=== PATIENT | female | born 1995 | race African-American/Black ===

== ENCOUNTER 2016-08-21 21:38 | Emergency (ER) | payer BC ==
[~2016-08-21] VITALS: Ht 160 cm; Wt 72.0 kg
[~2016-08-21 21:38] MED LIST: NAPR500 PO; PERC5TAB12 PO
[2016-08-21 21:42] VITALS: BP 119/58; PULSE 100; RESP 16; TEMP 98.4; O2SAT 100
[2016-08-22 01:45] VITALS: BP 118/76; PULSE 82; RESP 16; O2SAT 98
[2016-08-22] MEDS ORDERED: SODIUM CHLOR 0.9% 1000 ML INJ 1,000 ML IV ONE (02:15)
--- NOTE | 2016-08-22 02:22 | PD ---
HPI Chief Complaint: Related Problem Time Seen by Provider: 01:38 Travel History International Travel<30 days: No Contact w/Intl Traveler<30days: No Traveled to known affect area: No History of Present Illness HPI The patient is a 21 year old female who presents to the [facility] emergency department with a history of lower back pain in the left low back that began at 6:30 PM. She reports that she was sitting down when it started. She reports that it has come and gone. She reports that when she got up to walk after sitting the pain recurred. The patient denies doing any heavy lifting or falling. She reports that she is approximately 13 weeks gestation. She denies having any vaginal bleeding or vaginal discharge. She denies having any abdominal pain. She denies having any dysuria. She reports that she has frequency related to being , however no urgency. The patient denies any recent fever, cough, congestion, neck pain, chest pain, shortness of breath, abdominal pain, vomiting, diarrhea, urinary symptoms, or neurologic symptoms. LMP: May 23, 2016 She has no local OB. She just moved to the area. [facility] Past Medical History Narrative Medical The patient's past medical history is reportedly None. Medical History: Denies Significant Hx Diminished Hearing: No Immunizations Current: Yes Tetanus Vaccination: < 5 Years ?: LMP: 05/23/16 : 2 : 1 Past Surgical History Narrative Surgical The patient's past surgical history is reportedly None. Surgical History: No Previous Surgery Social History Alcohol Use: Yes ([facility]) Tobacco Use: No Substance Use: No Allergies-Medications (Allergen,Severity, Reaction): Coded Allergies: No Known Allergies (Unverified , 08/21/16) Reported Meds & Prescriptions Reported Meds & Active Scripts Active No Active Prescriptions or Reported Medications Review of Systems Except as stated in HPI: all other systems reviewed are Neg General / Constitutional: No: Fever Eyes: No: Visual changes HENT: No: Headaches Cardiovascular: No: Chest Pain or Discomfort Respiratory: No: Shortness of Breath Gastrointestinal: No: Abdominal Pain Genitourinary: Positive: Frequency, No: Urgency, Dysuria Musculoskeletal: Positive: Myalgias, No: Pain Skin: No Rash Neurologic: No: Weakness Psychiatric: No: Depression Endocrine: No: Polydipsia Hematologic/Lymphatic: No: Easy Bruising Physical Exam Narrative General: The patient is well-developed well-nourished female in no acute distress. Head and Neck exam: Head is normocephalic atraumatic. Eyes: Pupils are equal round and reactive to light. Nose: Midline septum with pink mucous membranes Mouth: Dentition unremarkable. Moist mucus membranes. Posterior oropharynx is not erythematous. No tonsillar hypertrophy. Uvula midline. Airway patent. Neck: No palpable lymphadenopathy. No nuchal rigidity. No thyromegaly. Cardiovascular: Regular rate and rhythm without murmurs, gallops, or rubs. Lungs: Clear to auscultation bilaterally. No wheezes, rhonchi, or rales. Abdomen: Soft, without tenderness to palpation in all 4 quadrants of the abdomen. The patient has suprapubic prominence on palpation consistent with early . No guarding, rebound, or rigidity. Normal bowel sounds are audible. Extremities: No clubbing, cyanosis, or edema. 2+ pulses in all 4 extremities. Back: No spinous process tenderness to palpation. No costovertebral angle tenderness to palpation. The patient has tenderness on palpation along the lumbar paraspinal muscles and bilateral SI joints. Neurologic Exam: Grossly nonfocal. Skin Exam: No rash noted. Intact skin that is warm and dry. Gynecologic exam: The patient was placed in the dorsal lithotomy position. Her external genitalia were examined. She had no evidence of rash or lesions. The speculum was placed into her vagina and the cervix was identified. She had a physiologic appearing clear white discharge. No cervical friability. On Bimanual exam: she has no cervical motion tenderness. No adnexal tenderness or prominence noted on palpation. No uterine tenderness or enlargement noted on palpation. Data Data Last Documented VS Vital Signs Date Time Temp Pulse Resp B/P Pulse Ox O2 Delivery O2 Flow Rate FiO2 08/22/16 01:45 82 16 118/76 98 Room Air 08/21/16 21:42 98.4 Orders Beta Hcg (Quant/Titer) (08/22/16 02:03) Complete Blood Count With Diff (08/22/16 02:03) Comprehensive Metabolic Panel (08/22/16 02:03) Gc And Chlamydia Pcr (08/22/16 02:03) Complete Rh (08/22/16 02:03) Wet Prep Profile (08/22/16 02:03) Urinalysis - C+S If Indicated (08/22/16 02:03) Iv Access Insert/Monitor (08/22/16 02:03) Ecg Monitoring (08/22/16 02:03) Ed Poc Ultrasound (08/22/16 02:03) Sodium Chlor 0.9% 1000 Ml Inj (Ns 1000 M (08/22/16 02:15) Acetaminophen (Tylenol) (08/22/16 04:30) Labs Laboratory Tests Test 08/22/16 08/22/16 08/22/16 02:40 03:00 04:15 White Blood Count 6.8 TH/MM3 Red Blood Count 4.78 MIL/MM3 Hemoglobin 13.9 GM/DL Hematocrit 40.4 % Mean Corpuscular Volume 84.4 FL Mean Corpuscular Hemoglobin 29.1 PG Mean Corpuscular Hemoglobin 34.5 % Concent Red Cell Distribution Width 15.1 % Platelet Count 415 TH/MM3 Mean Platelet Volume 8.1 FL Neutrophils (%) (Auto) 57.1 % Lymphocytes (%) (Auto) 33.6 % Monocytes (%) (Auto) 7.9 % Eosinophils (%) (Auto) 0.9 % Basophils (%) (Auto) 0.5 % Neutrophils # (Auto) 3.9 TH/MM3 Lymphocytes # (Auto) 2.3 TH/MM3 Monocytes # (Auto) 0.5 TH/MM3 Eosinophils # (Auto) 0.1 TH/MM3 Basophils # (Auto) 0.0 TH/MM3 CBC Comment DIFF FINAL Differential Comment Sodium Level 136 MEQ/L Potassium Level 4.6 MEQ/L Chloride Level 103 MEQ/L Carbon Dioxide Level 24.9 MEQ/L Anion Gap 8 MEQ/L Blood Urea Nitrogen 5 MG/DL Creatinine 0.59 MG/DL Estimat Glomerular Filtration 156 ML/MIN Rate Random Glucose 77 MG/DL Calcium Level 9.1 MG/DL Total Bilirubin 0.3 MG/DL Aspartate Amino Transf 40 U/L (AST/SGOT) Alanine Aminotransferase 40 U/L (ALT/SGPT) Alkaline Phosphatase 73 U/L Total Protein 8.1 GM/DL Albumin 3.8 GM/DL Human Chorionic Gonadotropin, 81876 MIU/ML Quant Blood Type O POSITIVE Rho(D) Type POSITIVE Urine Color YELLOW Urine Turbidity CLEAR Urine pH 6.0 Urine Specific [place] 1.013 Urine Protein NEG mg/dL Urine Glucose (UA) NEG mg/dL Urine Ketones TRACE mg/dL Urine Occult Blood NEG Urine Nitrite NEG Urine Bilirubin NEG Urine Urobilinogen LESS THAN 2.0 MG/DL Urine Leukocyte Esterase NEG Urine RBC 1 /hpf Urine WBC 1 /hpf Urine Squamous Epithelial 1 /hpf Cells Urine Mucus FEW /lpf Microscopic Urinalysis Comment CULT NOT INDICATED Clue Cells (Wet Prep) NONE SEEN Vaginal Trichomonas (Wet Prep) NONE SEEN Vaginal Yeast (Wet Prep) NONE SEEN MDM Medical Decision Making Medical Screen Exam Complete: Yes Emergency Medical Condition: Yes Medical Record Reviewed: Yes Differential Diagnosis Threatened miscarriage, versus pyelonephritis, versus musculoskeletal strain Narrative Course During the course of the patients emergency department visit, the patients history, examination, and differential diagnosis were reviewed with the patient. The patient had IV access obtained and blood work sent for analysis. The patient's placed on a photographer aerial with oximetry and blood pressure monitoring. The patient was provided normal saline 1 L IV fluid bolus, Tylenol 650 by mouth 1. The patients laboratory studies were reviewed and remarkable for a CBC that is unremarkable. CMP is remarkable for BUN of 5, creatinine 0.59, AST 40, beta hCG 42,554, urinalysis shows trace ketones otherwise unremarkable. Wet prep was negative. Radiology studies were reviewed and remarkable for a bedside ultrasound that was done by me that revealed an intrauterine with active fetus and heart tones between 160-180. The patient's symptoms are most consistent with musculoskeletal strain. The patient was instructed to take Tylenol 650 mg by mouth every 6 hours as needed for discomfort. She was instructed to ice use alternating with heat as needed for discomfort locally. The patient is resting comfortably and feels better, is alert and in no distress. The patients results and examination findings The repeat examination is unremarkable and benign. The history, exam, diagnostic testing, and current condition do not suggest any significant pathology to warrant further testing, continued ED treatment, admission, or surgical evaluation at this point. The vital signs have been stable. The patient does not have uncontrollable pain, intractable vomiting, or other significant symptoms. The patient's condition is stable and appropriate for discharge. The patient will pursue further outpatient evaluation with a primary care physician or other designated or consulting physician as indicated in the discharge instructions. The patient expressed understanding and was agreeable with this plan. Procedures Procedure Narrative Emergency Department Pelvic ultrasound was performed with patient consent. The curvilinear probe was used in the transverse and sagittal views within the suprapubic region revealing single intrauterine . heart rate was 160s to 180s. Diagnosis Primary Impression: Musculoskeletal strain Additional Impression: Back pain affecting Referrals: Carri Blackwell MD 1 week Patient Instructions: Acute Low Back Pain (ED), General Instructions Additional Instructions: The patient was instructed to take Tylenol 650 mg by mouth every 6 hours as needed for discomfort. She was instructed to ice use alternating with heat as needed for discomfort locally. Scripts No Active Prescriptions or Reported Meds Disposition: 01 DISCHARGE HOME Condition: Stable Maira Siddiqui MD Aug 22, 2016 02:22
[2016-08-22 02:58] LABS: AUTOMATED NEUTROPHIL # 3.9 TH/MM3 (1.8-7.7); BASOPHIL % 0.5 % (0.0-2.0); EOSINOPHIL # 0.1 TH/MM3 (0-0.4); EOSINOPHIL % 0.9 % (0.0-4.0); HEMATOCRIT 40.4 % (35.0-46.0); HEMO FLAGS DIFF FINAL; LYMPH % 33.6 % (9.0-44.0); LYMPHOCYTE # 2.3 TH/MM3 (1.0-4.8); MEAN CELL VOLUME 84.4 FL (80.0-100.0); MEAN CORPUSCULAR HEMOGLOBIN 29.1 PG (27.0-34.0); MEAN CORPUSCULAR HGB CONC 34.5 % (32.0-36.0); MONO % 7.9 % (0.0-8.0); NEUT % 57.1 % (16.0-70.0); PLATELET COUNT 415 TH/MM3 (150-450); RED BLOOD COUNT 4.78 MIL/MM3 (4.00-5.30); RED CELL DISTRIBUTION WIDTH 15.1 % (11.6-17.2); WHITE BLOOD COUNT 6.8 TH/MM3 (4.0-11.0)
[2016-08-22 03:43] LABS: ALKALINE PHOSPHATASE 73 U/L (45-117); BETA HCG QUANT 42554 MIU/ML (0-5); TOTAL BILIRUBIN ADULT 0.3 MG/DL (0.2-1.0)
[2016-08-22 03:44] LABS: ALT (GPT) 40 U/L (10-53); ANION GAP 8 MEQ/L (5-15); AST (GOT) 40 U/L (15-37); BICARBONATE 24.9 MEQ/L (21.0-32.0); BLOOD UREA NITROGEN 5 MG/DL (7-18); CHLORIDE 103 MEQ/L (98-107); GLOMERULAR FILTRATION RATE 156 ML/MIN (>89); POTASSIUM 4.6 MEQ/L (3.5-5.1); SODIUM (NA) 136 MEQ/L (136-145)
[2016-08-22 03:53] LABS: BLOOD, URINE NEG (NEG); COMMENT (UR) CULT NOT INDICATED; CULTURE IF INDICATED CULT NOT INDICATED; GLUCOSE,URINE NEG (NEG); KETONE, URINE TRACE mg/dL (NEG); MUCUS URINE FEW /lpf (OCC); NITRITE,URINE NEG (NEG); SQUAMOUS EPITHELIAL CELL URINE 1 /hpf (0-5); URINE COLOR YELLOW (YELLW/STRAW)
[2016-08-22] MEDS ORDERED: ACETAMINOPHEN 325 MG TAB PO ONE (04:30)
[2016-08-22 05:07] VITALS: BP 125/78
[2016-08-22 06:13] LABS: CHLAMYDIA PCR NOT DETECTED (NOT DETECT); NEISSERIA PCR NOT DETECTED (NOT DETECT)
== END 2016-08-22 05:30 | disposition home or self-care (01) ==
LOC: NEPC 21:38
DX: O26.891 Other specified pregnancy related conditions, first trimester (principal); M54.5 Low back pain; Z3A.13 13 weeks gestation of pregnancy
CPT/HCPCS: 80053; 81001; 84702; 85025; 86901; 87210; 87491; 87591; 96360; 99284; J7030

== ENCOUNTER 2016-11-03 16:04 | Emergency (ER) | payer BC ==
--- NOTE | 2016-11-03 16:54 | PD ---
HPI Chief Complaint Decreased movement today Date Seen: Nov 03, 2016 Travel History International Travel<30 Days: No Contact w/Intl Traveler<30Days: No Known Affected Area: No History of Present Illness HPI Patient is 21-year-old black female at 23-1/2 weeks was followed by Dr. Vuong for care. Presents complaining of decreased movement today. Denies bleeding pain or ruptured membranes. heart rate tracing is within normal limits 23 weeks no contractions seen Para: 0 : 2 History Obstetric History Obstetric History She's had 1 AB in the past Social History Alcohol Use: No Tobacco Use: No Substance Abuse: No Allergies-Medications (Allergen,Severity, Reaction): Coded Allergies: No Known Allergies (Unverified , 11/03/16) Home Meds No Active Prescriptions or Reported Meds Review of Systems General / Constitutional: No: Fever, Weight Gain, Chills, Other Eyes: No: Diploplia, Blurred Vision, Visual changes, Pain, Photophobia HENT: No: Headaches, Vertigo, Lightheadedness Cardiovascular: No: Irregular Rhythm, Chest Pain or Discomfort, Palpitations, Tachycardia, Syncope, Varicosities, Edema, Cyanosis Respiratory: No: Cough, Short of Breath, Other Gastrointestinal: No: Nausea, Vomiting, Diarrhea Genitourinary: No: Decreased Urinary Output, Oliguria Musculoskeletal: No: Limited ROM, Weakness, Cramping, Edema, Pain Skin: No Rash, No Itching, No Dryness, No Lumps, No Change in Pigmentation, No Change in Nails, No Alopecia, No Lesions Neurologic: No: Weakness, Dizziness, Syncope, Focal Abnormalities, Coordination Problem, Headache, Slurred Speech, Seizures Psychiatric: No: Depression, Suicidal Ideations, Homicidal Ideation Endocrine: No: Heat Intolerance, Cold Intolerance, Polydipsia, Polyuria, Other Physical Exam Narrative GENERAL: Well-nourished, well-developed patient. SKIN: Warm and dry. HEAD: Normocephalic and atraumatic. EYES: No scleral icterus. No injection or drainage. ENT: No nasal drainage noted. Mucous membranes pink. Airway patent. NECK: Supple, trachea midline. No JVD. CARDIOVASCULAR: Regular rate and rhythm without murmurs, gallops, or rubs. RESPIRATORY: Breath sounds equal bilaterally. No accessory muscle use. BREASTS: Bilateral exam showed no masses , no retractions, no nipple discharge. ABDOMEN/GI: Abdomen soft, non-tender, bowel sounds present, no rebound, no guarding Gravid to [-23] weeks size Fundal Height: [23-] GENITOURINARY: FHT's: 140s EXTREMITIES: No cyanosis or edema. BACK: Nontender without obvious deformity. No CVA tenderness. NEUROLOGICAL: Awake and alert. Motor and sensory grossly within normal limits. Five out of 5 muscle strength in all muscle groups. Normal speech. Data Data Labs Bedside ultrasound done today by me, shows a cephalic fetus male with normal cardiac motion and a very active fetus moving its extremities a lot, size equal dates is normal amniotic fluid and a fundal posterior placenta, photographs taken of the baby. We showed the mother she watched the baby moving on the ultrasound. MDM Interpretation(s) This patient is 21-year-old black female at 23-1/[address] Vuong for OB care presents complaining of decreased movement today. No other obstetric complaints. She states that her previous ultrasound done through Dr. Vuong showed the baby having a what she describes as a "marker" on its heart I don't really know what they are talking about there but there related to a level II ultrasound in 2 weeks to evaluate that, but she was worried about that and with dec. Moving and so she came in to be checked. Once again ultrasound today done by myself urine in OB triage is active fetus in a vertex presentation with heart rate of 140s and I cannot visualize anything wrong with heart on this ultrasound today but just a level II ultrasound is obviously indicated , normal amniotic fluid and normal placenta noted Plan Plan for follow-up with her OB provider and received at level II ultrasound is scheduled Diagnosis Diagnosis: Primary Impression: Decreased movement affecting management of in second trimester Disposition: 01 DISCHARGE HOME Condition: Stable Scripts No Active Prescriptions or Reported Meds Jair Montana II, MD Nov 03, 2016 16:54
== END 2016-11-03 17:22 | disposition home or self-care (01) ==
LOC: HOBED 16:04
DX: O36.8120 Decreased fetal movements, second trimester, not applicable or unspecified (principal); Z3A.23 23 weeks gestation of pregnancy
CPT/HCPCS: 76815

== ENCOUNTER → 2016-11-20 | Outpatient (CLI) | payer BC | LOC: HPND 10:04 | PROVIDERS: ATTEND Obstetrics & Gynecology | DX: O35.1XX0 Maternal care for (suspected) chromosomal abnormality in fetus, not applicable or unspecified (principal); Z3A.25 25 weeks gestation of pregnancy | CPT/HCPCS: 36415; 76811 ==

== ENCOUNTER → 2016-12-20 | Outpatient (CLI) | payer BC | LOC: HPND 10:17 | PROVIDERS: ATTEND Obstetrics & Gynecology | DX: O35.1XX0 Maternal care for (suspected) chromosomal abnormality in fetus, not applicable or unspecified (principal) | CPT/HCPCS: 76816 ==

== ENCOUNTER 2017-01-30 19:38 | Emergency (ER) | payer BC ==
--- NOTE | 2017-01-30 20:10 | PD ---
HPI Chief Complaint abdominal pain Date Seen: Jan 30, 2017 (Indio Hernandez MD R2) Travel History International Travel<30 Days: No Contact w/Intl Traveler<30Days: No (Indio Hernandez MD R2) History of Present Illness HPI Ms. Castanon is a 22-year-old patient of Dr. Vuong at 36 weeks GA (LUIS 2016) who presents with complaint of abdominal pain. Patient reports having generalized abdominal pain for the past 2 days; she states that this is constant throughout the day and not associated with oral intake urination. Patient rates pain at 8/10 in severity. Patient states that she ate chicken wings this afternoon and had some nausea afterwards but is otherwise not been nauseous over the past 2 days. Patient reports that her bowel movements are more frequent but normal in consistency; she states having 2 bowel movements today. Patient does not report diarrhea or blood in stool. Patient states that she has been urinating frequently during but not more so than usual; she does not report dysuria. Patient reports mild dizziness but states that this is likely due to not eating; she does not report headaches or visual changes. Patient does not report fevers. Patient reports some heartburn symptoms throughout ; she controls this with Tums. Patient reports normal movement. She does not report vaginal bleeding or discharge. Patient does not report chest pain, shortness of breath, or leg swelling. Patient states that she has had an unremarkable history but that she has not had her gestational diabetes test yet. Patient states that she had initial ultrasound demonstrating echogenic bowel but follow-up ultrasound did not show any abnormalities[confirmed via EMR with 12/20 reassuring ultrasound]. Patient had GBS testing last week; she is not aware of results at this time. Para: 0 : 2 : 1 (Indio Hernandez MD R2) History Past Medical History Narrative Medical None (Indio Hernandez MD R2) Obstetric History Obstetric History G1 (Indio Hernandez MD R2) Past Surgical History Surgical History: No Previous Surgery (Indio Hernandez MD R2) Family History Narrative Family History Grandmotherlung cancer Grandmotherdiabetes (Indio Hernandez MD R2) Social History Alcohol Use: No Tobacco Use: No Substance Abuse: No (Indio Hernandez MD R2) Allergies-Medications (Allergen,Severity, Reaction): Coded Allergies: No Known Allergies (Unverified , 11/03/16) Home Meds No Active Prescriptions or Reported Meds Review of Systems General / Constitutional: No: Fever Eyes: No: Blurred Vision HENT: Lightheadedness (mild), No: Headaches Cardiovascular: No: Chest Pain or Discomfort, Palpitations Respiratory: No: Cough, Short of Breath Gastrointestinal: Nausea (mild after wings), No: Vomiting Genitourinary: Frequency (chronic during ), No: Urgency, Dysuria Psychiatric: No: Anxiety, Depression (Indio Hernandez MD R2) Physical Exam BP 103/76 HR 119 T 98.5 RR 18 Narrative GENERAL: Well-nourished, well-developed patient. SKIN: Warm and dry. HEAD: Normocephalic and atraumatic. EYES: No scleral icterus. No injection or drainage. ENT: No nasal drainage noted. Mucous membranes pink. Airway patent. NECK: Supple, trachea midline. No JVD. CARDIOVASCULAR: Regular rate and rhythm without murmurs RESPIRATORY: CTAB, normal rate ABDOMEN/GI: Abdomen soft, no rebound or guarding. Mild epigastric tenderness, mild suprapubic tenderness but otherwise without pain Gravid EXTREMITIES: No cyanosis or edema. BACK: Nontender without obvious deformity. No CVA tenderness. NEUROLOGICAL: Awake and alert. Motor and sensory grossly within normal limits. Uterine Contractions: None FHT's: Category: 1 Baseline: 150 Reactive: Y Variability: Mod Decels: none (Indio Hernandez MD R2) Data Data Vital Signs Reviewed: Yes (Indio Hernandez MD R2) MDM Medical Record Reviewed: Yes Narrative Course / MDM Ms. Castanon is a 22-year-old patient of Dr. Vuong at 36 weeks GA (LUIS 2016) who presents with complaint of abdominal pain. -Urinary frequency throughout -Mild epigastric pain and suprapubic pain on exam -Cat 1 rhythm -No contractions on CTG Plan: -Will monitor EFM and for contractions -Will check UA due to complaint of dysuria Interval history: Repeat heart rate 100 -Stick UA performed by nursing staff; reassuring and not suggestive of UTI. Patient able to tolerate lottie cachorro in OB ED without nausea. Discussed with patient likelihood of benign etiology of symptoms such as gastroenteritis; patient agrees that this is likely current cause of symptoms Updated plan: Discussed with patient likelihood of mild dehydration due to decreased oral intake; patient feels confident that she can drink adequate/increased fluids at home. Plan to discharge patient home with follow-up with Dr. Vuong in the near future ; patient to return to ED with worsening oral intake or new symptoms (Indio Hernandez MD R2) Attending Attestation The exam, history, and the medical decision-making described in the above note were completed with the assistance of the resident provider. I reviewed and agree with the findings presented. I attest that I had a [id number] encounter with the patient on the same day, and personally performed and documented my assessment and findings in the medical record. (Carri Blackwell MD) Diagnosis Diagnosis: Primary Impression: Gastroenteritis Additional Impressions: Mild dehydration Abdominal pain affecting Disposition: 01 DISCHARGE HOME Condition: Stable Scripts No Active Prescriptions or Reported Meds Referrals: OBGYN 3 days Patient Instructions: Abdominal Pain in (ED), General Instructions, Nausea and Vomiting in (ED) Indio Hernandez MD R2 Jan 30, 2017 20:10 Carri Blackwell MD Jan 30, 2017 21:30
== END 2017-01-30 21:43 | disposition home or self-care (01) ==
LOC: HOBED 19:38
DX: O26.899 Other specified pregnancy related conditions, unspecified trimester (principal); K52.9 Noninfective gastroenteritis and colitis, unspecified; E86.0 Dehydration; R42 Dizziness and giddiness; R35.0 Frequency of micturition; Z3A.36 36 weeks gestation of pregnancy
CPT/HCPCS: 59025